=== PATIENT | female | born 1980 | race Caucasian/White ===

== ENCOUNTER 2016-05-17 22:31 | Emergency (ER) | payer OTHER ==
[~2016-05-17] VITALS: Ht 157.5 cm; Wt 108.9 kg
[2016-05-17] MEDS ORDERED: HYDROMORPHONE 2 MG/ML VIAL. IM ONE (23:30)
[2016-05-17] MEDS ORDERED: CYCLOBENZAPRINE 10 MG TABLET. PO ONE (23:30)
[2016-05-17] MEDS ORDERED: HYDR-2666 PO (23:46)
--- NOTE | 2016-05-17 23:47 | PHYS DOC ---
Past Medical History Past Medical History: Anxiety, Bipolar Additional Past Medical Histor: iv drug use(03/2014),manic depressionII,manic/ depress,hyperanxiety,"ulcer" Past Surgical History: Cholecystectomy, , Tonsillectomy, Tubal ligation, Other Additional Past Surgical Histo: tubal ligation, HERNIA REPAIR, KNEE ARTHOSCOPIC Alcohol Use: Occasionally Drug Use: Marijuana, Methamphetamine, Opiates Adult General Chief Complaint Chief Complaint: BACK PAIN OR INJURY HPI HPI 45-year-old female presenting to the emergency department after having musculoskeletal back pain in the lumbar region after lifting heavy objects. She describes as a sharp shooting pain that wraps around her abdomen and into her legs. Otherwise it is severe, and without alleviating factors. Review of systems is negative for fecal or urinary incontinence. She denies perineal paresthesias numbness weakness or tingling. She denies fevers or history of IV drug use. All other review of systems is negative unless otherwise noted in history of present illness. Review of Systems Review of Systems See above Current Medications Current Medications Current Medications Medications (Trade) Dose Ordered Sig/Yash Start Time Stop Time Status Last Admin Dose Admin Cyclobenzaprine HCl (Flexeril) 10 mg 1X ONCE 05/17/16 23:30 05/17/16 23:31 DC 05/17/16 23:22 10 MG Hydromorphone HCl (Dilaudid) 1 mg 1X ONCE 05/17/16 23:30 05/17/16 23:31 DC 05/17/16 23:22 1 MG Allergies Allergies Allergies Coded Allergies Type Severity Reaction Last Updated Verified Sulfa (Sulfonamide Antibiotics) Allergy Mild 12/15/14 Yes Physical Exam Physical Exam Constitutional: Well developed, well nourished, no acute distress, non-toxic appearance. [] HENT: Normocephalic, atraumatic, bilateral external ears normal, oropharynx moist, no oral exudates, nose normal. Eyes: PERRLA, EOMI, conjunctiva normal, no discharge. [] Neck: Normal range of motion, no tenderness, supple, no stridor. Cardiovascular:Heart rate regular rhythm, no murmur [] Lungs & Thorax: Bilateral breath sounds clear to auscultation Abdomen: Bowel sounds normal, soft, no tenderness, no masses, no pulsatile masses. [] Skin: Warm, dry, no erythema, no rash. [] Back: Mild paraspinal musculature tenderness without any midline tenderness. No step-offs abrasions erythema or fluctuance present. Extremities: No tenderness, no cyanosis, no clubbing, ROM intact, no edema. Neurologic: Alert and oriented X 3, normal motor function, normal sensory function, no focal deficits noted. 5 out of 5 strength in lower extremities with 2+ deep tendon reflexes of the knees. Psychologic: Affect normal, judgement normal, mood normal. [] Current Patient Data Vital Signs Vital Signs Date Time Temp Pulse Resp B/P Pulse Ox O2 Delivery O2 Flow Rate FiO2 05/18/16 00:15 85 20 97/70 99 Room Air 05/17/16 23:08 97.9 97.9 Lab Values Laboratory Tests Test 05/17/16 22:54 POC Urine HCG, Qualitative Hcg negative (Negative) EKG EKG [] Radiology/Procedures Radiology/Procedures [] Course & Med Decision Making Course & Med Decision Making Pertinent Labs and Imaging studies reviewed. (See chart for details) [] 35-year-old female with lumbar back pain presenting to the emergency department. Vital signs afebrile. Otherwise unremarkable. Critical presentation not suggestive of fracture abscess or cauda equina syndrome. The patient's pain was controlled with intramuscular pain medication along with oral muscle relaxants. On reevaluation the patient's pain improved significantly. She was discharged home to follow-up with her employer's work comp clinic in 2-3 days. Dragon Disclaimer Dragon Disclaimer This electronic medical record was generated, in whole or in part, using a voice recognition dictation system. Departure Departure Impression: Primary Impression: LOW BACK PAIN Disposition: 01 HOME, SELF-CARE Condition: STABLE Referrals: CALLI GANT MD (PCP) Patient Instructions: Back Pain, Adult Additional Instructions: Thank you for allowing us to participate in your care today. Followup with your primary care physician in 3 days if your symptoms do not improve. If you do not have a primary care provider you can ask for a list of our primary care providers. Return to the emergency department you have any new or concerning findings. This should be evaluated by the primary care physician and any necessary consulting services for continued management within a few days after discharge. Return to emergency room if you have any new or concerning symptoms including but not limited to fever, chills, nausea, vomiting, intractable pain, any new rashes, chest pain, shortness of air, uncontrolled bleeding, difficulty breathing, and/or vision loss. You may have been prescribed medication that can change in your level of thinking and ability to operate machinery. These medications include hydrocodone and Ativan. Also, Benadryl has been known to do this as well. Be sure to check with your pharmacist and ask if the medications you've prescribed can affect your level of consciousness. I recommend not operating heavy machinery or driving while on medication such as these. Scripts Hydrocodone Bit/Acetaminophen (Hydrocodone-Apap 5-325 )1 Each Tablet1 Tab PO PRN Q6HRS PRN PAIN #15 TAB Be careful as this medication may cause you to be drowsy or tired. Do not drive on this medication. Prov:SHANNAN PARISI MD 05/17/16 SHANNAN PARISI MD May 17, 2016 23:47
[2016-05-18 00:15] VITALS: BP 97/70
== END 2016-05-18 00:15 | disposition home or self-care (01) ==
LOC: ER 22:31
DX: M54.5 Low back pain (principal); F31.9 Bipolar disorder, unspecified; F41.9 Anxiety disorder, unspecified; F11.10 Opioid abuse, uncomplicated; F12.10 Cannabis abuse, uncomplicated; Z90.49 Acquired absence of other specified parts of digestive tract; Z98.51 Tubal ligation status; Z98.890 Other specified postprocedural states; F15.10 Other stimulant abuse, uncomplicated; Z88.2 Allergy status to sulfonamides
CPT/HCPCS: 81025; 96372; 99283; J1170; 99285-25

== ENCOUNTER 2016-06-05 17:42 | Emergency (ER) | payer OTHER ==
[~2016-06-05] VITALS: Ht 157.5 cm; Wt 108.0 kg
[~2016-06-05 17:42] MED LIST: HYDR-2666 PO
[2016-06-05 18:12] VITALS: BP 169/78
--- NOTE | 2016-06-05 18:48 | PHYS DOC ---
Past Medical History Past Medical History: Anxiety, Bipolar Additional Past Medical Histor: iv drug use(03/2014),manic depressionII,manic/ depress,hyperanxiety,"ulcer" Past Surgical History: Cholecystectomy, , Tonsillectomy, Tubal ligation, Other Additional Past Surgical Histo: tubal ligation, HERNIA REPAIR, KNEE ARTHOSCOPIC Alcohol Use: Occasionally Drug Use: Marijuana, Methamphetamine, Opiates Adult General Chief Complaint Chief Complaint: BACK PAIN - NO INJURY HPI HPI Patient is a 35 year old female who presents with back pain and numbness in her arms. Patient reports couple weeks ago she injured her back at work while picking up a heavy box and twisting. She was seen at that time and discharged home. For about the past week she has been having burning pain and numbness in both of her arms, right greater than left. No new trauma or other clear inciting event. Patient has tried tramadol, Tylenol, ibuprofen, naproxen with insufficient relief. She has been unable to follow-up with her PCP as of yet due to her work schedule. No lower extremity symptoms. No loss of bowel or bladder continence. Review of Systems Review of Systems Constitutional: Denies fever or chills Eyes: Denies change in visual acuity or eye pain HENT: Denies nasal congestion or sore throat Respiratory: Denies cough or shortness of breath Cardiovascular: Denies chest pain GI: Denies abdominal pain, nausea, vomiting, bloody stools or diarrhea : Denies dysuria or hematuria Musculoskeletal: Upper back pain; burning pain in b/l arms Integument: Denies rash or skin lesions Neurologic: Denies headache, focal weakness Current Medications Current Medications Current Medications Medications (Trade) Dose Ordered Sig/Yash Start Time Stop Time Status Last Admin Dose Admin Acetaminophen/ Hydrocodone Bitart (Lortab 5/325) 2 tab 1X ONCE 06/05/16 19:00 06/05/16 19:01 DC 06/05/16 18:45 2 TAB Gabapentin (Neurontin) 300 mg 1X ONCE 06/05/16 19:00 06/05/16 19:01 DC 06/05/16 18:45 300 MG Allergies Allergies Allergies Coded Allergies Type Severity Reaction Last Updated Verified Sulfa (Sulfonamide Antibiotics) Allergy Mild 12/15/14 Yes Physical Exam Physical Exam Constitutional: Well developed, well nourished, no acute distress, non-toxic appearance HENT: Normocephalic, atraumatic, bilateral external ears normal Eyes: EOMI, conjunctiva normal, no discharge Neck: Normal range of motion, no stridor Cardiovascular: Heart rate normal, regular rhythm, no murmur Lungs & Thorax: Bilateral breath sounds clear to auscultation Abdomen: Bowel sounds normal, soft, non-distended, no TTP Skin: Warm, dry, no erythema, no rash Back: No midline tenderness, no stepoff or deformity; no skin lesion noted Extremities: No obvious deformity, no edema; 2+ radial pulse b/l; BUE without deformity or other lesion Neurologic: Alert and oriented X 3, RUE strength limited by pain, LUE strength fully intact; patient reports decreased sensation to b/l hands; no other deficits noted Psychologic: Affect normal, judgement normal, mood normal Current Patient Data Vital Signs Vital Signs Date Time Temp Pulse Resp B/P Pulse Ox O2 Delivery O2 Flow Rate FiO2 06/05/16 18:12 98.2 94 22 100 Room Air 98.2 EKG EKG [] Radiology/Procedures Radiology/Procedures X-ray thoracic spine: IMPRESSION No evidence of acute abnormality. Course & Med Decision Making Course & Med Decision Making Pertinent Labs and Imaging studies reviewed. (See chart for details) Patient is 35-year-old female presents with upper back pain and bilateral upper extremity numbness and burning pain. Possible herniated disc from injury 2 weeks ago. Will obtain thoracic x-ray to rule out acute bony process. [place] and gabapentin ordered for relief of pain. Imaging results as above. Discussed results with patient, whose pain is improved at this time. Discussed importance of following up with PCP for further evaluation, such as possible MRI. Discharged with prescription for meds, instructions for close follow-up, strict return precautions. Dragon Disclaimer Dragon Disclaimer This electronic medical record was generated, in whole or in part, using a voice recognition dictation system. Departure Departure Impression: Primary Impression: Back pain Additional Impression: Paresthesia Disposition: 01 HOME, SELF-CARE Condition: IMPROVED Referrals: CALLI GANT MD (PCP) Patient Instructions: Back Pain, Adult, Paresthesia Additional Instructions: Thank you for allowing us to provide care today in the Emergency Department. Take the provided medication as directed. Use caution when taking this medication as it can make you drowsy. Schedule a follow up appointment with your primary care doctor. Return promptly to the Emergency Department if you develop any new or concerning symptoms. Scripts Gabapentin 300 Mg [id number] Mg PO BID #30 CAP Prov:KANCHAN ARAUJO MD 06/05/16 Hydrocodone/Apap 5-325 ([place] 5-325 Tablet)1 Each Tablet1 Tab PO PRN Q6HRS PRN PAIN #12 TAB Prov:KANCHAN ARAUJO MD 06/05/16 Problem Qualifiers KANCHAN ARAUJO MD Jun 05, 2016 18:48
[2016-06-05] MEDS ORDERED: GABAPENTIN 300 MG CAPSULE. PO ONE (19:00)
[2016-06-05] MEDS ORDERED: HYDROCODONE/APAP 5/325MG TABLET. PO ONE (19:00)
--- NOTE | 2016-06-05 19:59 | RAD ---
PROCEDURE Thoracic spine AP lateral and swimmer's views 06/05/2016. HISTORY Upper back pain and upper extremity numbness. No history of trauma is given. TECHNIQUE COMPARISON FINDINGS Alignment is normal. There is no loss of vertebral body height or paravertebral soft tissue widening to suggest fracture. No destructive process or unusual disc narrowing is seen. IMPRESSION No evidence of acute abnormality. Electronically signed by: Tawanda Luque (Jun 05, 2016 19:58:07)
[2016-06-05] MEDS ORDERED: HYDR-971 PO (20:25)
[2016-06-05] MEDS ORDERED: GABA-586 PO (20:25)
== END 2016-06-05 20:45 | disposition home or self-care (01) ==
LOC: ER 17:42
DX: M54.6 Pain in thoracic spine (principal); R20.0 Anesthesia of skin; F12.10 Cannabis abuse, uncomplicated; F15.10 Other stimulant abuse, uncomplicated; F11.10 Opioid abuse, uncomplicated; Z88.2 Allergy status to sulfonamides
CPT/HCPCS: 72072; 99284

== ENCOUNTER 2016-07-15 22:12 | Emergency (ER) | payer OTHER ==
[~2016-07-15 22:12] MED LIST changes: +GABA-586 PO; +HYDR-971 PO
[2016-07-15 22:44] LABS: BASO # 0.1 x10^3/uL (0.0-0.2); BASO % 1 % (0-3); EOS % 1 % (0-3); HEMATOCRIT 36.3 % (36.0-47.0); HEMOGLOBIN 11.7 g/dL (12.0-15.5); LYMPH # 2.8 x10^3/uL (1.0-4.8); LYMPH % 24 % (24-48); MEAN CORPUSCULAR HEMOGLOBIN 27 pg (25-35); MEAN CORPUSCULAR HGB CONC 32 g/dL (31-37); MEAN CORPUSCULAR VOLUME 84 fL (79-100); MONO % 9 % (0-9); NEUT % 65 % (31-73); PLATELET COUNT 351 x10^3/uL (140-400); RED BLOOD COUNT 4.31 x10^6/uL (3.50-5.40); RED CELL DISTRIBUTION WIDTH 16.7 % (11.5-14.5); WHITE BLOOD COUNT 11.7 x10^3/uL (4.0-11.0)
[2016-07-15 22:45] LABS: BILIRUBIN,URINE NEGATIVE (NEG); GLUCOSE,URINE NEGATIVE (NEG); NITRITE,URINE NEGATIVE (NEG); PH,URINE 6.5; PROTEIN,URINE NEGATIVE (NEG-TRACE); UROBILINOGEN,URINE 0.2 mg/dL (0.2 mg/dL)
[2016-07-15 22:51] LABS: BACTERIA,URINE FEW /HPF (0-FEW); SQUAMOUS EPITHELIAL CELL,UR MANY /LPF
[2016-07-15] MEDS ORDERED: CONTRAST GIVEN MC PRN (23:00)
[2016-07-15] MEDS ORDERED: IOHEXOL 300 MG/ML 75 ML VIAL IV ONE (23:00)
[2016-07-15 23:08] LABS: CALCIUM 8.1 mg/dL (8.5-10.1); GFR 63.5; POTASSIUM 3.3 mmol/L (3.5-5.1)
[2016-07-15 23:14] LABS: ALBUMIN 3.2 g/dL (3.4-5.0); ALBUMIN/GLOBULIN RATIO 0.8 (1.0-1.7); TOTAL BILIRUBIN 0.2 mg/dL (0.2-1.0); TOTAL PROTEIN 7.1 g/dL (6.4-8.2)
--- NOTE | 2016-07-15 23:46 | RAD ---
PROCEDURE Abdomen and pelvis CT with intravenous contrast. HISTORY Abdominal pain and diarrhea. TECHNIQUE Computed tomographic images of the abdomen and pelvis were obtained following the administration of 75 cc Omnipaque 300 intravenous contrast. One or more of the following individualized dose reduction techniques were utilized for this examination: 1. Automated exposure control; 2. Adjustment of the mA and/or kV according to patient size; 3. Use of iterative reconstruction technique. COMPARISON 12/13/2014 FINDINGS Evaluation of the lower thorax is unremarkable. There is a suspected 5 mm cyst or hemangioma within the right hepatic lobe. The liver is mildly enlarged. The gallbladder is surgically absent. The pancreas, spleen, adrenal glands and kidneys are unremarkable. The appendix is unremarkable. No abnormally thickened or dilated loop of bowel is seen. There are few distal colonic diverticula. The uterus, ovaries and bladder are unremarkable. There are multiple pelvic phleboliths. There is no pathologically enlarged lymph node. There is slight diastasis of the ventral abdominal wall musculature. The previously demonstrated infraumbilical hernia is no longer seen. There is no suspicious osseous lesion. IMPRESSION 1. Few distal colonic diverticula. 2. Suspected tiny hepatic cyst or hemangioma. 3. Mild hepatomegaly. Electronically signed by: Vonda Boone (Jul 15, 2016 23:44:40)
[2016-07-16 00:06] VITALS: BP 135/84
[2016-07-16] MEDS ORDERED: LIDO:MAALOX:DONNATAL 1:1:1 15 ML SINGLE DOSE SWSW ONE (00:15)
[2016-07-16] MEDS ORDERED: ONDANSETRON PF 4 MG/2 ML VIAL. IV ONE (00:15)
[2016-07-16] MEDS ORDERED: FENTANYL PF 100 MCG/2 ML VIAL. IV PRN (00:15)
[2016-07-16] MEDS ORDERED: IV NORMAL SALINE 1000ML BAG 1,000 ML IV ONE (00:15)
[2016-07-16] MEDS ORDERED: POTASSIUM CHLORIDE 20 MEQ/15 ML ORAL LIQUID. PO ONE (01:15)
[2016-07-16] MEDS ORDERED: SUCR1TAB PO (01:18)
--- NOTE | 2016-07-16 01:18 | PHYS DOC ---
Past Medical History Past Medical History: Anxiety, Bipolar Additional Past Medical Histor: iv drug use(03/2014),manic depressionII,manic/ depress,hyperanxiety,"ulcer" Past Surgical History: Cholecystectomy, , Tonsillectomy, Tubal ligation, Other Additional Past Surgical Histo: tubal ligation, HERNIA REPAIR, KNEE ARTHOSCOPIC Alcohol Use: Occasionally Drug Use: Marijuana, Methamphetamine, Opiates Adult General Chief Complaint Chief Complaint: ABDOMINAL PAIN HPI HPI Patient is a 35 year old female who presents with abdominal pain. The patient reports 3 day history of epigastric abdominal pain associated with nausea, vomiting, & diarrhea. 1 episode of vomiting today, numerous episodes of diarrhea. Denies fevers/chills, hematemesis, hematochezia/melena, dysuria/ hematuria. Reports previous history of similar symptoms associated with gastric ulcer. She takes omeprazole daily, no recent dietary changes. No recent travel, antibiotics, ill contacts. History of hernia repair & cholecystectomy. Review of Systems Review of Systems Constitutional: Denies fever or chills HENT: Denies nasal congestion or sore throat Respiratory: Denies cough or shortness of breath Cardiovascular: Denies chest pain or edema GI: Reports abdominal pain, nausea, vomiting, & diarrhea, denies bloody stools : Denies dysuria or hematuria Musculoskeletal: Denies back pain or joint pain Integument: Denies rash or skin lesions Neurologic: Denies headache, focal weakness or sensory changes Current Medications Current Medications Current Medications Medications (Trade) Dose Ordered Sig/Yash Start Time Stop Time Status Last Admin Dose Admin Fentanyl Citrate (Fentanyl 2ml Vial) 50 mcg PRN Q15MIN PRN 07/16/16 00:15 07/16/16 01:36 DC 07/16/16 00:19 50 MCG Info 1 each 1 each PRN DAILY PRN 07/15/16 23:00 07/16/16 01:36 DC Iohexol (Omnipaque 300 Mg/ml) 75 ml 1X ONCE 07/15/16 23:00 07/15/16 23:01 DC 07/15/16 23:29 75 ML Multi-Ingredient Mouthwash/Gargle (Gi Cocktail Single Dose) 15 ml 1X ONCE 07/16/16 00:15 07/16/16 00:16 DC 07/16/16 00:19 15 ML Ondansetron HCl (Zofran) 4 mg 1X ONCE 07/16/16 00:15 07/16/16 00:16 DC 07/16/16 00:19 4 MG Potassium Chloride (KCl Oral Soln) 40 meq 1X ONCE 07/16/16 01:15 07/16/16 01:32 DC 07/16/16 01:28 40 MEQ Sodium Chloride (Iv Sodium Chloride 0.9% 1000ml Bag) 1,000 ml @ 1,000 mls/hr 1X ONCE 07/16/16 00:15 07/16/16 01:14 DC 07/16/16 00:19 1,000 MLS/HR Allergies Allergies Allergies Coded Allergies Type Severity Reaction Last Updated Verified Sulfa (Sulfonamide Antibiotics) Allergy Mild 12/15/14 Yes Physical Exam Physical Exam Constitutional: obese, appears uncomfortable, non-toxic appearance. HENT: Normocephalic, atraumatic, bilateral external ears normal, oropharynx moist, nose normal. Eyes: conjunctiva normal, no discharge. Neck: supple, no stridor. Cardiovascular: RRR, no murmurs, no edema. Lungs & Thorax: LCTAB, no wheezing, no respiratory distress. Abdomen: hyperactive bowel sounds, soft, epigastric tenderness as well as diffuse upper abdominal tenderness, no rebound/guarding, no masses or pulsatile masses, nondistended. Skin: Warm, dry, no erythema, no rash. Back: No CVA tenderness. Extremities: No tenderness, no edema. Neurologic: Alert and oriented X 3, no focal deficits noted. Psychologic: Affect normal, judgement normal, mood normal. Current Patient Data Vital Signs Vital Signs Date Time Temp Pulse Resp B/P Pulse Ox O2 Delivery O2 Flow Rate FiO2 07/16/16 00:19 20 07/16/16 00:06 88 135/84 97 Room Air 07/15/16 22:18 98.8 98.8 Lab Values Laboratory Tests Test 07/15/16 21:42 07/15/16 22:24 07/15/16 22:30 POC Urine HCG, Qualitative Hcg negative (Negative) Urine Collection Type Unknown Urine Color Yellow Urine Clarity Clear Urine pH 6.5 Urine Specific [place] 1.020 Urine Protein Negativemg/dL (NEG-TRACE) Urine Glucose (UA) Negativemg/dL (NEG) Urine Ketones (Stick) Negativemg/dL (NEG) Urine Blood Large (NEG) Urine Nitrite Negative (NEG) Urine Bilirubin Negative (NEG) Urine Urobilinogen Dipstick 0.2mg/dL (0.2 mg/dL) Urine Leukocyte Esterase Negative (NEG) Urine RBC 1-2/HPF (0-2) Urine WBC 1-4/HPF (0-4) Urine Squamous Epithelial Cells Many/LPF Urine Bacteria Few/HPF (0-FEW) Urine Mucus Marked/LPF White Blood Count 11.7x10^3/uL (4.0-11.0) H Red Blood Count 4.31x10^6/uL (3.50-5.40) Hemoglobin 11.7g/dL (12.0-15.5) L Hematocrit 36.3% (36.0-47.0) Mean Corpuscular Volume 84fL (79-100) Mean Corpuscular Hemoglobin 27pg (25-35) Mean Corpuscular Hemoglobin Concent 32g/dL (31-37) Red Cell Distribution Width 16.7% (11.5-14.5) H Platelet Count 351x10^3/uL (140-400) Neutrophils (%) (Auto) 65% (31-73) Lymphocytes (%) (Auto) 24% (24-48) Monocytes (%) (Auto) 9% (0-9) Eosinophils (%) (Auto) 1% (0-3) Basophils (%) (Auto) 1% (0-3) Neutrophils # (Auto) 7.6x10^3uL (1.8-7.7) Lymphocytes # (Auto) 2.8x10^3/uL (1.0-4.8) Monocytes # (Auto) 1.1x10^3/uL (0.0-1.1) Eosinophils # (Auto) 0.2x10^3/uL (0.0-0.7) Basophils # (Auto) 0.1x10^3/uL (0.0-0.2) Sodium Level 143mmol/L (136-145) Potassium Level 3.3mmol/L (3.5-5.1) L Chloride Level 106mmol/L (98-107) Carbon Dioxide Level 26mmol/L (21-32) Anion Gap 11 (6-14) Blood Urea Nitrogen 10mg/dL (7-20) Creatinine 1.0mg/dL (0.6-1.0) Estimated GFR (Cockcroft-Gault) 63.5 BUN/Creatinine Ratio 10 (6-20) Glucose Level 91mg/dL (70-99) Calcium Level 8.1mg/dL (8.5-10.1) L Total Bilirubin 0.2mg/dL (0.2-1.0) Aspartate Amino Transferase (AST) 26U/L (15-37) Alanine Aminotransferase (ALT) 34U/L (14-59) Alkaline Phosphatase 64U/L (46-116) Total Protein 7.1g/dL (6.4-8.2) Albumin 3.2g/dL (3.4-5.0) L Albumin/Globulin Ratio 0.8 (1.0-1.7) L Lipase 88U/L (73-393) Laboratory Tests 07/15/16 22:30 Laboratory Tests 07/15/16 22:30 EKG EKG [] Radiology/Procedures Radiology/Procedures PROCEDURE: CT ABD PELV W/ IV CONTRST ONLY PROCEDURE Abdomen and pelvis CT with intravenous contrast. HISTORY Abdominal pain and diarrhea. TECHNIQUE Computed tomographic images of the abdomen and pelvis were obtained following the administration of 75 cc Omnipaque 300 intravenous contrast. One or more of the following individualized dose reduction techniques were utilized for this examination: 1. Automated exposure control; 2. Adjustment of the mA and/or kV according to patient size; 3. Use of iterative reconstruction technique. COMPARISON 12/13/2014 FINDINGS Evaluation of the lower thorax is unremarkable. There is a suspected 5 mm cyst or hemangioma within the right hepatic lobe. The liver is mildly enlarged. The gallbladder is surgically absent. The pancreas, spleen, adrenal glands and kidneys are unremarkable. The appendix is unremarkable. No abnormally thickened or dilated loop of bowel is seen. There are few distal colonic diverticula. The uterus, ovaries and bladder are unremarkable. There are multiple pelvic phleboliths. There is no pathologically enlarged lymph node. There is slight diastasis of the ventral abdominal wall musculature. The previously demonstrated infraumbilical hernia is no longer seen. There is no suspicious osseous lesion. IMPRESSION 1. Few distal colonic diverticula. 2. Suspected tiny hepatic cyst or hemangioma. 3. Mild hepatomegaly. Electronically signed by: Vonda Ervin (Jul 15, 2016 23:44:40) DICTATED and SIGNED BY: VONDA ERVIN MD DATE: 07/15/16 5701 [] Course & Med Decision Making Course & Med Decision Making Pertinent Labs and Imaging studies reviewed. (See chart for details) Patient presents with abdominal pain & vomiting/diarrhea. She had severe abdominal tenderness on exam. Gave IV fluids, Zofran, pain medication, and GI cocktail. No significant lab abnormality, CT shows no acute cause of her symptoms. She eventually felt better after medications were not administered. She was comfortable with discharge home. Recommend rest, by mouth hydration with small sips of clear liquids, Zofran as needed for nausea, try sucralfate for abdominal pain. Expect diarrhea to improve gradually over the next several days, possibly viral. Patient instructed to follow up with primary care physician in about 2 or 3 days, may also make appointment with Dr. Najera in the GI clinic if symptoms are persistent. Return to the emergency department for high fever, severe pain, uncontrolled vomiting, any otherwise worsening condition. Discharged home in stable condition. [] Dragon Disclaimer Dragon Disclaimer This electronic medical record was generated, in whole or in part, using a voice recognition dictation system. Departure Departure Impression: Primary Impression: Abdominal pain Additional Impressions: Vomiting and diarrhea Hypokalemia Disposition: 01 HOME, SELF-CARE Condition: IMPROVED Referrals: CALLI GARCIA MD (PCP) JORDAN NAJERA MD Patient Instructions: Abdominal Pain, [id number] Additional Instructions: You were seen in the emergency department today for abdominal pain. Labs and CT showed no serious abnormality. This may be your ulcer or gastritis. Please rest , drink fluids to stay hydrated, use Zofran as needed for nausea, try sucralfate for pain. Continue omeprazole. Follow up with Dr. Garcia, consider seeing Dr. Najera in the GI clinic. Come back for high fever, severe pain, uncontrolled vomiting, any otherwise worsening condition. Scripts Sucralfate 1 Gm Tablet1 Gm PO BID #30 Prov:WALT COLE MD 07/16/16 Problem Qualifiers WALT COLE MD Jul 16, 2016 01:18
== END 2016-07-16 01:35 | disposition home or self-care (01) ==
LOC: ER 22:13
DX: R10.13 Epigastric pain (principal); R11.2 Nausea with vomiting, unspecified; R19.7 Diarrhea, unspecified; E87.6 Hypokalemia; E66.9 Obesity, unspecified; F41.9 Anxiety disorder, unspecified; F31.9 Bipolar disorder, unspecified; F15.10 Other stimulant abuse, uncomplicated; F12.10 Cannabis abuse, uncomplicated; F11.10 Opioid abuse, uncomplicated; Z98.51 Tubal ligation status; Z98.890 Other specified postprocedural states; Z87.19 Personal history of other diseases of the digestive system; Z79.899 Other long term (current) drug therapy; Z88.2 Allergy status to sulfonamides; Z90.49 Acquired absence of other specified parts of digestive tract
CPT/HCPCS: 36415; 74177; 80053; 81001; 81025; 83690; 85027; 96361; 96374; 96375; 99285; J2405; J3010; J7030; Q9967

== ENCOUNTER 2018-03-25 19:15 | Emergency (ER) | payer SELFPAY ==
[~2018-03-25] VITALS: Ht 157.5 cm; Wt 74.8 kg
[2018-03-25 19:15] VITALS: BP 141/75
[~2018-03-25 19:15] MED LIST changes: -GABA-586 PO; +GABA300C18 PO; -HYDR-2666 PO; +HYDR-2761 PO; +HYDR-3164 PO; -HYDR-971 PO; +SUCR1TAB PO
[2018-03-25] MEDS ORDERED: AMOX500C PO (19:59)
[2018-03-25] MEDS ORDERED: TRAM1TAB4 PO (19:59)
--- NOTE | 2018-03-25 19:59 | PHYS DOC ---
Past Medical History Past Medical History: Anxiety, Bipolar Additional Past Medical Histor: iv drug use(03/2014),manic depressionII,manic/ depress,hyperanxiety,"ulcer" Past Surgical History: Cholecystectomy, , Tonsillectomy, Tubal ligation, Other Additional Past Surgical Histo: tubal ligation, HERNIA REPAIR, KNEE ARTHOSCOPIC Alcohol Use: Occasionally Drug Use: Marijuana Adult General Chief Complaint Chief Complaint: DENTAL PROBLEM HPI HPI Patient is a 37 year old [f__sex] who presents with [] Review of Systems Review of Systems Constitutional: Denies fever or chills [] Eyes: Denies change in visual acuity, redness, or eye pain [] HENT: Denies nasal congestion or sore throat [] Respiratory: Denies cough or shortness of breath [] Cardiovascular: No additional information not addressed in HPI [] GI: Denies abdominal pain, nausea, vomiting, bloody stools or diarrhea [] : Denies dysuria or hematuria [] Musculoskeletal: Denies back pain or joint pain [] Integument: Denies rash or skin lesions [] Neurologic: Denies headache, focal weakness or sensory changes [] Endocrine: Denies polyuria or polydipsia [] All other systems were reviewed and found to be within normal limits, except as documented in this note. Allergies Allergies Allergies Coded Allergies Type Severity Reaction Last Updated Verified Sulfa (Sulfonamide Antibiotics) Allergy Mild 12/15/14 Yes Physical Exam Physical Exam Constitutional: Well developed, well nourished, no acute distress, non-toxic appearance. [] HENT: Normocephalic, atraumatic, bilateral external ears normal, oropharynx moist, no oral exudates, nose normal. [] Eyes: PERRLA, EOMI, conjunctiva normal, no discharge. [] Neck: Normal range of motion, no tenderness, supple, no stridor. [] Cardiovascular:Heart rate regular rhythm, no murmur [] Lungs & Thorax: Bilateral breath sounds clear to auscultation [] Abdomen: Bowel sounds normal, soft, no tenderness, no masses, no pulsatile masses. [] Skin: Warm, dry, no erythema, no rash. [] Back: No tenderness, no CVA tenderness. [] Extremities: No tenderness, no cyanosis, no clubbing, ROM intact, no edema. [] Neurologic: Alert and oriented X 3, normal motor function, normal sensory function, no focal deficits noted. [] Psychologic: Affect normal, judgement normal, mood normal. [] Current Patient Data Vital Signs Vital Signs Date Time Temp Pulse Resp B/P (MAP) Pulse Ox O2 Delivery O2 Flow Rate FiO2 03/25/18 19:15 98.5 113 18 141/75 (97) 99 Room Air 98.5 EKG EKG [] Radiology/Procedures Radiology/Procedures [] Course & Med Decision Making Course & Med Decision Making Pertinent Labs and Imaging studies reviewed. (See chart for details) [] Dragon Disclaimer Dragon Disclaimer This electronic medical record was generated, in whole or in part, using a voice recognition dictation system. Departure Departure Impression: Primary Impression: Pain, dental Disposition: 01 HOME, SELF-CARE Condition: STABLE Referrals: CALLI GANT MD (PCP) Patient Instructions: Dental Caries Additional Instructions: Take medications as prescribed. You were prescribed pain medication. Do not drive or operate heavy machinery while taking the medication until you know how you respond to it. Scripts Tramadol Hcl/Acetaminophen (TRAMADOL-ACETAMINOPHN 37.5-325) 1 Each Tablet 1 TAB PO Q6H for PAIN, #14 TAB 0 Refills Prov: MAGDI TAVERAS APRN 03/25/18 Amoxicillin (AMOXICILLIN) 500 Mg Capsule 2 CAP PO BID for dental infection, #40 CAP Prov: MAGDI TAVERAS APRN 03/25/18 MAGDI TAVERAS APRN Mar 25, 2018 19:59
== END 2018-03-25 20:05 | disposition home or self-care (01) ==
LOC: ER 19:15
DX: K08.89 Other specified disorders of teeth and supporting structures (principal); F31.9 Bipolar disorder, unspecified; F41.9 Anxiety disorder, unspecified; Z90.49 Acquired absence of other specified parts of digestive tract; Z90.89 Acquired absence of other organs; Z98.890 Other specified postprocedural states; Z98.51 Tubal ligation status; Z88.2 Allergy status to sulfonamides
CPT/HCPCS: 99283

== ENCOUNTER 2018-04-26 22:04 | Emergency (ER) | payer SELFPAY ==
[~2018-04-26] VITALS: Ht 157.5 cm; Wt 74.8 kg
[~2018-04-26 22:04] MED LIST changes: +AMOX500C PO; +TRAM1TAB4 PO
[2018-04-26 23:13] VITALS: BP 123/73
[2018-04-26] MEDS: methylPREDNISolone ACETATE 80 MG/ML VIAL. IM ONE (23:45)
[2018-04-26] MEDS: diphenhydrAMINE HCL 25 MG CAPSULE PO ONE (23:45)
--- NOTE | 2018-04-26 23:50 | PHYS DOC ---
Past Medical History Past Medical History: Anxiety, Bipolar Additional Past Medical Histor: iv drug use(03/2014),manic depressionII,manic/ depress,hyperanxiety,"ulcer" Past Surgical History: Cholecystectomy, , Tonsillectomy, Tubal ligation, Other Additional Past Surgical Histo: tubal ligation, HERNIA REPAIR, KNEE ARTHOSCOPIC Alcohol Use: Occasionally Drug Use: Marijuana Adult General Chief Complaint Chief Complaint: ITCHING HPI HPI Patient is a 37 year old [f__sex] who presents with [] Review of Systems Review of Systems Constitutional: Denies fever or chills [] Eyes: Denies change in visual acuity, redness, or eye pain [] HENT: Denies nasal congestion or sore throat [] Respiratory: Denies cough or shortness of breath [] Cardiovascular: No additional information not addressed in HPI [] GI: Denies abdominal pain, nausea, vomiting, bloody stools or diarrhea [] : Denies dysuria or hematuria [] Musculoskeletal: Denies back pain or joint pain [] Integument: Denies rash or skin lesions [] Neurologic: Denies headache, focal weakness or sensory changes [] Endocrine: Denies polyuria or polydipsia [] All other systems were reviewed and found to be within normal limits, except as documented in this note. Current Medications Current Medications Current Medications Medications (Trade) Dose Ordered Sig/Yash Start Time Stop Time Status Last Admin Dose Admin Diphenhydramine HCl (Benadryl) 50 mg 1X ONCE 04/26/18 23:45 04/26/18 23:46 Methylprednisolone Acetate (DEPO-Medrol 80MG VIAL) 80 mg 1X ONCE 04/26/18 23:45 04/26/18 23:46 Allergies Allergies Allergies Coded Allergies Type Severity Reaction Last Updated Verified Sulfa (Sulfonamide Antibiotics) Allergy Mild 12/15/14 Yes Physical Exam Physical Exam Constitutional: Well developed, well nourished, no acute distress, non-toxic appearance. [] HENT: Normocephalic, atraumatic, bilateral external ears normal, oropharynx moist, no oral exudates, nose normal. [] Eyes: PERRLA, EOMI, conjunctiva normal, no discharge. [] Neck: Normal range of motion, no tenderness, supple, no stridor. [] Cardiovascular:Heart rate regular rhythm, no murmur [] Lungs & Thorax: Bilateral breath sounds clear to auscultation [] Abdomen: Bowel sounds normal, soft, no tenderness, no masses, no pulsatile masses. [] Skin: Warm, dry, no erythema, no rash. [] Back: No tenderness, no CVA tenderness. [] Extremities: No tenderness, no cyanosis, no clubbing, ROM intact, no edema. [] Neurologic: Alert and oriented X 3, normal motor function, normal sensory function, no focal deficits noted. [] Psychologic: Affect normal, judgement normal, mood normal. [] EKG EKG [] Radiology/Procedures Radiology/Procedures [] Course & Med Decision Making Course & Med Decision Making Pertinent Labs and Imaging studies reviewed. (See chart for details) [] Dragon Disclaimer Dragon Disclaimer This electronic medical record was generated, in whole or in part, using a voice recognition dictation system. Departure Departure Impression: Primary Impression: Skin rash Additional Impression: Methamphetamine abuse Disposition: 01 HOME, SELF-CARE Condition: STABLE Referrals: CALLI GANT MD (PCP) Patient Instructions: Methamphetamine Abuse, Complications, Rash Additional Instructions: Continue care at home medications. Follow-up with dermatology. Do not ingested methamphetamine, as it will worsen your condition. Problem Qualifiers MAGDI TAVERAS APRN Apr 26, 2018 23:50
== END 2018-04-26 23:50 | disposition home or self-care (01) ==
LOC: ER 22:04
DX: R21 Rash and other nonspecific skin eruption (principal); F15.10 Other stimulant abuse, uncomplicated; F41.9 Anxiety disorder, unspecified; F31.9 Bipolar disorder, unspecified; Z90.49 Acquired absence of other specified parts of digestive tract; Z90.89 Acquired absence of other organs; Z98.890 Other specified postprocedural states; Z98.51 Tubal ligation status; Z88.2 Allergy status to sulfonamides
CPT/HCPCS: 96372; 99283; J1040; Q0163

== ENCOUNTER 2018-06-15 02:02 | Emergency (ER) | payer SELFPAY ==
[~2018-06-15] VITALS: Ht 157.5 cm; Wt 84.8 kg
[2018-06-15] MEDS ORDERED: PERM60CR12 TP (02:44)
--- NOTE | 2018-06-15 02:44 | PHYS DOC ---
Past Medical History Past Medical History: Anxiety, Bipolar Additional Past Medical Histor: iv drug use(03/2014),manic depressionII,manic/ depress,hyperanxiety,"ulcer" Past Surgical History: Cholecystectomy, , Tonsillectomy, Tubal ligation, Other Additional Past Surgical Histo: tubal ligation, HERNIA REPAIR, KNEE ARTHOSCOPIC Alcohol Use: Occasionally Drug Use: Marijuana Adult General Chief Complaint Chief Complaint: SKIN PROBLEM HPI HPI Patient is a 37-year-old female who presents with complaint of diffuse rash with a lot of itching that started a couple of days ago. Patient just recently found out that she was exposed to scabies over at her daughter's house a few days ago. She denies any shortness of breath or fever. Review of Systems Review of Systems Constitutional: Denies fever or chills [] Respiratory: Denies cough or shortness of breath [] Cardiovascular: No additional information not addressed in HPI [] Integument: Positive rash and itching[] Allergies Allergies Allergies Coded Allergies Type Severity Reaction Last Updated Verified Sulfa (Sulfonamide Antibiotics) Allergy Mild 12/15/14 Yes Physical Exam Physical Exam Constitutional: Well developed, well nourished, no acute distress, non-toxic appearance. [] Cardiovascular:Heart rate regular rhythm, no murmur [] Lungs & Thorax: Bilateral breath sounds clear to auscultation [] Skin: There is a diffuse erythematous papular rash with numerous excoriations. [ ] EKG EKG [] Radiology/Procedures Radiology/Procedures [] Course & Med Decision Making Course & Med Decision Making Pertinent Labs and Imaging studies reviewed. (See chart for details) [] Dragon Disclaimer Dragon Disclaimer This electronic medical record was generated, in whole or in part, using a voice recognition dictation system. Departure Departure Impression: Primary Impression: Scabies Disposition: HOME, SELF-CARE Condition: STABLE Referrals: CALLI GANT MD (PCP) Patient Instructions: Scabies Scripts Permethrin (PERMETHRIN) 60 Gm Cream..g. 1 MIR TP ONCE, #60 GM 1 Refill Uses directed per package instructions Prov: MANDEEP GARCIA Jr. DO 06/15/18 MANDEEP GARCIA Jr. DO Jun 15, 2018 02:44
== END 2018-06-15 03:25 | disposition home or self-care (01) ==
LOC: ER 02:02
DX: B86 Scabies (principal); F41.9 Anxiety disorder, unspecified; F31.9 Bipolar disorder, unspecified; Z90.49 Acquired absence of other specified parts of digestive tract; Z98.890 Other specified postprocedural states; Z90.89 Acquired absence of other organs; Z98.51 Tubal ligation status; Z88.2 Allergy status to sulfonamides
CPT/HCPCS: 99282

== ENCOUNTER 2018-11-26 16:46 | Emergency (ER) | payer SELFPAY ==
[~2018-11-26] VITALS: Ht 157.5 cm; Wt 84.4 kg
[~2018-11-26 16:46] MED LIST changes: +PERM60CR12 TP
[2018-11-26 18:06] VITALS: BP 131/79
[2018-11-26] MEDS ORDERED: cefTRIAXone IM 1 GM VIAL IM ONE (18:15)
[2018-11-26] MEDS ORDERED: LIDOCAINE 1% PF 2 ML VIAL. INJ ONE (18:15)
[2018-11-26] MEDS ORDERED: ACETAMINOPHEN 500 MG TABLET PO ONE (18:30)
--- NOTE | 2018-11-26 18:53 | PHYS DOC ---
Past Medical History Past Medical History: Anxiety, Bipolar, CVA, DVT Additional Past Medical Histor: drug use(03/2014),manic depressionII,manic/depress,hyperanxiety,"ulcer",PTS (PRAKASH SIMPSON APRN) Past Surgical History: Cholecystectomy, , Tonsillectomy, Tubal ligation, Other Additional Past Surgical Histo: tubal ligation, HERNIA REPAIR, KNEE ARTHOSCOPIC (PRAKASH SIMPSON APRN) Alcohol Use: Rarely Drug Use: None (PRAKASH SIMPSON APRN) Adult General Chief Complaint Chief Complaint: ABSCESS HPI HPI Patient is a 37 year old female with history of CVA, bipolar, anxiety, who presents to the ED today complaining of abscesses on her scalp that began a week ago as well as left wilson patient denies any fever. She states she's been weak since September when she sustained a stroke. She states she is improving considering she is now using a cane, from wheelchair. She states she is homeless and does not have any money to buy any medications for her abscess. She states she has history of MRSA. She is also complaining of poison nakia rash to bilateral upper and lower extremity that she noted a couple days ago. (PRAKASH SIMPSON APRN) Review of Systems Review of Systems Constitutional: Denies fever or chills [] Eyes: Denies change in visual acuity, redness, or eye pain [] HENT: Denies nasal congestion or sore throat [] Respiratory: Denies cough or shortness of breath [] Cardiovascular: No additional information not addressed in HPI [] GI: Denies abdominal pain, nausea, vomiting, bloody stools or diarrhea [] : Denies dysuria or hematuria [] Integument: Reports abscess on the scalp and left wilson Neurologic: Reports weakness since diagnoses of stroke in September. Denies headache, focal weakness or sensory changes [] All other systems were reviewed and found to be within normal limits, except as documented in this note. (PRAKASH SIMPSON APRN) Current Medications Current Medications Current Medications Medications (Trade) Dose Ordered Sig/Yash Start Time Stop Time Status Last Admin Dose Admin Acetaminophen (Tylenol) 1,000 mg 1X ONCE 11/26/18 18:30 11/26/18 18:31 DC 11/26/18 18:50 1,000 MG Ceftriaxone Sodium (Rocephin Im) 1 gm 1X ONCE 11/26/18 18:15 11/26/18 18:19 DC 11/26/18 18:50 1 GM Lidocaine HCl (Xylocaine-Mpf 1% 2ml Vial) 2 ml 1X ONCE 11/26/18 18:15 11/26/18 18:19 DC 11/26/18 18:50 2 ML (JORDAN HOWARD DO) Allergies Allergies Allergies Coded Allergies Type Severity Reaction Last Updated Verified Sulfa (Sulfonamide Antibiotics) Allergy Mild 12/15/14 Yes (JORDAN HOWARD DO) Physical Exam Physical Exam Constitutional: Well developed, well nourished, no acute distress, non-toxic ap pearance. [] HENT: Normocephalic, atraumatic, bilateral external ears normal, oropharynx moist, no oral exudates, nose normal. [] Eyes: PERRLA, EOMI, conjunctiva normal, no discharge. [] Neck: Normal range of motion, no tenderness, supple, no stridor. [] Cardiovascular:Heart rate regular rhythm, no murmur [] Lungs & Thorax: Bilateral breath sounds clear to auscultation [] Abdomen: Bowel sounds normal, soft, no tenderness, no masses, no pulsatile masses. [] Skin: The top of the scalp has open wounds consistent with abscesses that have already opened, no obvious drainage. Left wilson with an old scabbed up region approximately 3 cm long with surrounding cellulitis. No drainage. Right wilson with an open tiny wound with surrounding cellulitis. Small amount of erythematous papular rash on bilateral upper and lower extremities consistent with poison nakia. Back: No tenderness, no CVA tenderness. [] Extremities: No tenderness, no cyanosis, no clubbing, ROM intact, no edema. [] Neurologic: Alert and oriented X 3, normal motor function, normal sensory function, no focal deficits noted. [] Psychologic: Affect normal, judgement normal, mood normal. [] (PRAKASH SIMPSON APRN) Current Patient Data Vital Signs Vital Signs Date Time Temp Pulse Resp B/P (MAP) Pulse Ox O2 Delivery O2 Flow Rate FiO2 11/26/18 18:06 98.4 83 16 131/79 (96) 99 Room Air 98.4 (JORDAN HOWARD DO) EKG EKG [] (PRAKASH SIMPSON APRN) Radiology/Procedures Radiology/Procedures [] (PRAKASH SIMPSON APRN) Course & Med Decision Making Course & Med Decision Making Pertinent Labs and Imaging studies reviewed. (See chart for details) This is a 37-year-old homeless woman presenting to the ED today with a couple abscesses on her scalp as well as left wilson, none of them need to be drained. Patient was given Rocephin IM, discharged with clindamycin. Follow-up with her own PCP in 1-2 weeks. She is also complaining of poison nakia rash, discharged with triamcinolone cream and instructed to take Benadryl, tetanus is up-to-date. (PRAKASH SIMPSON APRN) Dragon Disclaimer Dragon Disclaimer This electronic medical record was generated, in whole or in part, using a voice recognition dictation system. (PRAKASH SIMPSON APRN) Departure Departure Impression: Primary Impression: Abscess or cellulitis of scalp Additional Impressions: Cellulitis of chin Cellulitis of right lower extremity Homelessness Poison nakia Disposition: HOME, SELF-CARE Condition: STABLE Referrals: NO PCP (PCP) Patient Instructions: Abscess, [id number], Cellulitis, [id number], Poison Nakia, [id number] Additional Instructions: You were evaluated in the emergency room for abscesses and cellulitis. We put you on antibiotics, ensure you complete them. Follow-up with your own doctor in 1-2 weeks. Use the prescribed cream for poison nakia. Take Benadryl as needed for poison nakia rash Scripts Triamcinolone Acetonide (TRIAMCINOLONE ACETONIDE 0.1% OINT) 15 Gm Oint...g. 1 MIR TP BID for WOUND CARE, #1 TUBE Prov: PRAKASH SIMPSON APRN 11/26/18 Clindamycin Hcl (CLINDAMYCIN HCL) 300 Mg Capsule 1 CAP PO TID, #21 CAP Prov: PRAKASH SIMPSON APRN 11/26/18 Attending Signature Attending Signature I have reviewed the PA/CONNIE CLEANER's note and plan of care. I was available for con sultation as needed during the patient's visit in the emergency department. I agree with the clinical impression, plan, and disposition. (JORDAN HOWARD DO) Problem Qualifiers PRAKASH SIMPSON APRN Nov 26, 2018 18:53 JORDAN HOWARD DO Nov 28, 2018 03:54
[2018-11-26] MEDS ORDERED: CLIN300C8 PO (18:59)
[2018-11-26] MEDS ORDERED: TRIA15OI TP (18:59)
== END 2018-11-26 19:10 | disposition home or self-care (01) ==
LOC: ER 16:46
DX: L02.811 Cutaneous abscess of head [any part, except face] (principal); L03.811 Cellulitis of head [any part, except face]; L03.211 Cellulitis of face; L03.115 Cellulitis of right lower limb; L23.7 Allergic contact dermatitis due to plants, except food; Z59.0 Homelessness; F41.9 Anxiety disorder, unspecified; F31.9 Bipolar disorder, unspecified; Z86.718 Personal history of other venous thrombosis and embolism; Z86.73 Personal history of transient ischemic attack (TIA), and cerebral infarction without residual deficits; Z90.89 Acquired absence of other organs; Z98.890 Other specified postprocedural states; Z98.51 Tubal ligation status; Z88.2 Allergy status to sulfonamides
CPT/HCPCS: 96372; 99283; J0696

== ENCOUNTER 2019-06-26 11:51 | Emergency (ER) | payer SELFPAY ==
[~2019-06-26] VITALS: Ht 157.5 cm; Wt 86.0 kg
[~2019-06-26 11:51] MED LIST changes: +CLIN300C8 PO; +TRIA15OI TP
[2019-06-26 12:20] VITALS: BP 116/62
--- NOTE | 2019-06-26 12:29 | PHYS DOC ---
Past Medical History Past Medical History: Anxiety, Bipolar, CVA, DVT Additional Past Medical Histor: drug use(03/2014),manic depressionII,manic/depress,hyperanxiety,"ulcer",PTS (JORDAN RUBIO APRN) Past Surgical History: Cholecystectomy, , Tonsillectomy, Tubal ligation, Other Additional Past Surgical Histo: tubal ligation, HERNIA REPAIR, KNEE ARTHOSCOPIC (JORDAN RUBIO APRN) Smoking Status: Current Every Day Smoker Alcohol Use: Rarely Drug Use: None (JORDAN RUBIO APRN) Adult General Chief Complaint Chief Complaint: ANKLE PROBLEM [facility] HPI Patient is a 38 year old female who presents with left ankle pain after she tripped around midnight. The patient is got an argument with her and tripped. Reports her pain is 6 out of 10 in severity and sharp. Complete ROS were reviewed and found to be within normal limits, except as documented in the HPI (JORDAN RUBIO APRN) Allergies Allergies Allergies Coded Allergies Type Severity Reaction Last Updated Verified Sulfa (Sulfonamide Antibiotics) Allergy Mild 12/15/14 Yes (CAREN EVANS DO) Physical Exam Physical Exam Constitutional: Well developed, well nourished, no acute distress, non-toxic appearance. [] HENT: Normocephalic, atraumatic, bilateral external ears normal, oropharynx moist, no oral exudates, nose normal. [] Extremities: Tenderness to L ankle. No edema noted. Neurologic: Alert and oriented X 3, normal motor function, normal sensory function, no focal deficits noted. [] Psychologic: Affect normal, judgement normal, mood normal. [] (JORDAN RUBIO APRN) Current Patient Data Vital Signs Vital Signs Date Time Temp Pulse Resp B/P (MAP) Pulse Ox O2 Delivery O2 Flow Rate FiO2 06/26/19 12:20 97.8 93 16 116/62 (80) 99 Room Air 97.8 (CAREN EVANS DO) EKG EKG [] (JORDAN RUBIO APRN) Radiology/Procedures Radiology/Procedures [][facility] [address] [place] [address] IMAGING REPORT Signed PATIENT: NIYAH RAMOSCOUNT: [id number] : 1980 LOCATION: ER AGE: 38 SEX: F EXAM STATUS: REG ER ORD. PHYSICIAN: JORDAN RUBIO APRN REASON: l ankle pain PROCEDURE: ANKLE LEFT 3V ANKLE LEFT 3V History: Left ankle pain Comparison: None. Findings: 3 views of the left ankle are submitted. No acute fracture or dislocation is identified. There is dorsal calcaneal enthesophyte. Small corticated osseous body between the talus and navicular bone is likely on degenerative basis. Impression: 1. No acute osseous abnormality is identified. Electronically signed by: Valeriano Bajwa MD (06/26/2019 12:55 PM) [id number] DICTATED and SIGNED BY: VALERIANO BAJWA MD DATE: 06/26/19 2623 (JORDAN RUBIO APRN) Course & Med Decision Making Course & Med Decision Making Pertinent Labs and Imaging studies reviewed. (See chart for details) We will get ankle x-ray. Ankle x-ray is unremarkable. Will put in leslie wrap and give crutches. (JORDAN RUBIO APRN) Dragon Disclaimer Dragon Disclaimer This electronic medical record was generated, in whole or in part, using a voice recognition dictation system. (JORDAN RUBIO APRN) Attending Signature I have participated in the care of this patient and I have reviewed and agree with all pertinent clinical information above including history, exam, and recommendations. (CAREN EVANS DO) Departure Departure Impression: Primary Impression: Ankle pain Disposition: HOME, SELF-CARE Condition: STABLE Referrals: NO PCP (PCP) Patient Instructions: Ankle Pain Additional Instructions: Thank you for visiting [facility]. We appreciate you trusting us with your care. If any additional problems come up don't hesitate to return to visit us. Please follow up with your primary care provider so they can plan additional care if needed and know about the problem that you had. If symptoms worsen come back to the Emergency Department. Any concerning symptoms that start such as chest pain, shortness of air, weakness or numbness on one side of the body, running high fevers or any other concerning symptoms return to the ER. Problem Qualifiers Primary Impression: Ankle pain Chronicity: acute Laterality: left Qualified Codes: M25.572 - Pain in left ankle and joints of left foot JORDAN RUBIO APRN Jun 26, 2019 12:29 CAREN EVANS DO Jun 26, 2019 14:37
--- NOTE | 2019-06-26 12:58 | RAD ---
ANKLE LEFT 3V History: Left ankle pain Comparison: None. Findings: 3 views of the left ankle are submitted. No acute fracture or dislocation is identified. There is dorsal calcaneal enthesophyte. Small corticated osseous body between the talus and navicular bone is likely on degenerative basis. Impression: 1. No acute osseous abnormality is identified. Electronically signed by: Nader Calle MD (06/26/2019 12:55 PM) [id number]
== END 2019-06-26 15:09 | disposition home or self-care (01) ==
LOC: ER 11:51
DX: M25.572 Pain in left ankle and joints of left foot (principal); F31.9 Bipolar disorder, unspecified; F17.200 Nicotine dependence, unspecified, uncomplicated; Z86.73 Personal history of transient ischemic attack (TIA), and cerebral infarction without residual deficits
CPT/HCPCS: 73610; 99283